=== PATIENT | female | born 1975 | race African-American/Black ===

== ENCOUNTER 2016-09-06 14:40 | Emergency (ER) | payer OTHER, MEDICAID ==
[~2016-09-06] VITALS: Ht 167.6 cm; Wt 104.5 kg
[2016-09-06] MEDS ORDERED: IBUP-2070 PO (15:24)
[2016-09-06 20:17] LABS: APPEARANCE,URINE CLOUDY (CLEAR); GLUCOSE, URINE (UA) NEGATIVE (NEGATIVE); KETONES,URINE NEGATIVE (NEGATIVE); LEUKOCYTE ESTERASE ,URINE MODERATE (NEGATIVE); OCCULT BLOOD,URINE SMALL (NEGATIVE); PROTEIN,URINE NEGATIVE (NEGATIVE)
[2016-09-06 20:26] LABS: ADD UA MICROSCOPIC YES; SQUAMOUS EPITHELIAL CELL,UR Many /LPF (None Seen); WBC,URINE 51-100 /HPF (0-5)
[2016-09-06] MEDS ORDERED: HYDROCODONE/ACETAMINOPHEN 10-325 MG TABLET PO ONE (20:45)
[2016-09-06] MEDS ORDERED: CefTRIAXone SODIUM 1 GM/VIAL IM ONE (20:45)
[2016-09-06] MEDS ORDERED: LIDOCAINE HCL/PF 1% 2 ML VIAL IM ONE (20:45)
[2016-09-06 21:45] VITALS: BP 133/77
== END 2016-09-06 22:01 | disposition home or self-care (01) ==
LOC: EMS 14:43
DX: N12 Tubulo-interstitial nephritis, not specified as acute or chronic (principal); N39.0 Urinary tract infection, site not specified; M54.5 Low back pain; G89.29 Other chronic pain; N83.209 Unspecified ovarian cyst, unspecified side
CPT/HCPCS: 81001; 81025; 87077; 87086; 87186; 96372; 99284; J0696; J3490